=== PATIENT | female | born 1945 | race Caucasian/White ===

== ENCOUNTER → 2016-07-24 16:53 | Outpatient (CLI) | payer MEDICARE, BC ==
[2012-07-31 07:26] VITALS: BMI 19.8
== END | disposition home or self-care (01) ==
LOC: D.MAMMO 07-13 15:00
DX: Z12.31 Encounter for screening mammogram for malignant neoplasm of breast (principal)

== ENCOUNTER → 2017-09-25 18:30 | Outpatient (CLI) | payer MEDICARE, BC ==
[2012-07-31 07:26] VITALS: BMI 19.8
== END | disposition home or self-care (01) ==
LOC: D.MAMMO 11:45
DX: Z12.31 Encounter for screening mammogram for malignant neoplasm of breast (principal)

== ENCOUNTER → 2018-10-18 21:35 | Outpatient (CLI) | payer MEDICARE, BC ==
[2012-07-31 07:26] VITALS: BMI 19.8
== END | disposition home or self-care (01) ==
LOC: D.MAMMO 09-30 10:45
PROVIDERS: ATTEND Family Medicine
DX: Z12.31 Encounter for screening mammogram for malignant neoplasm of breast (principal)

== ENCOUNTER 2019-11-13 09:00 | Outpatient (CLI) | payer MEDICARE, BC ==
[2012-07-31 07:26] VITALS: BMI 19.8
== END 2019-11-13 10:00 | disposition home or self-care (01) ==
LOC: D.MAMMO 09:00
PROVIDERS: ATTEND Family Medicine
DX: Z12.31 Encounter for screening mammogram for malignant neoplasm of breast (principal)

== ENCOUNTER 2019-11-26 10:30 | Outpatient (CLI) | payer MEDICARE, BC ==
[2012-07-31 07:26] VITALS: BMI 19.8
== END 2019-11-26 11:30 | disposition home or self-care (01) ==
LOC: D.MAMMO 10:30
PROVIDERS: ATTEND Family Medicine
DX: R92.8 Other abnormal and inconclusive findings on diagnostic imaging of breast (principal)

== ENCOUNTER 2020-11-02 16:58 | Emergency (ER) | payer MEDICARE, BC ==
[~2020-11-02] VITALS: Ht 165.1 cm; Wt 68.2 kg
[2020-11-02 17:08] VITALS: Ht 165.1 cm; Wt 68.2 kg
[2020-11-02 17:42] LABS: BASOPHILS 0.9 % (0-2); EOSINOPHILS 4.9 % (0-7); HEMATOCRIT 29.1 % (36.0-48.0); HEMOGLOBIN 9.3 g/dL (12-16); LYMPHOCYTES 12.8 % (15-50); MCH 23.4 pg (26.0-34.0); MCV 73.4 fL (80.0-100.0); MEAN PLATELET VOLUME 7.5 fL (7.4-10.4); MONOCYTES 9.8 % (2-11); NEUTROPHILS 71.6 % (40-80); PLATELET COUNT 347 10x3/uL (130-400); RBC 3.97 10x6/uL (4.00-5.40); RDW 17.4 % (11.5-14.5); WBC 6.3 10x3/uL (4.8-10.8)
[2020-11-02 17:49] LABS: CALC OSMOLALITY 278 mosm/kg (275-300); CALCIUM 8.6 mg/dL (8.5-10.1); CARBON DIOXIDE 24.4 mmol/L (21.0-32.0); CHLORIDE - SERUM 103 mmol/L (98-107); GLUCOSE 121 mg/dL (74-106); SODIUM 138 mmol/L (136-145); UREA NITROGEN 17 mg/dL (7-18); eGFR NON AFRICAN AMERICAN 57 mL/min (90-120)
[2020-11-02 17:57] LABS: ALBUMIN 3.7 g/dL (3.4-5.0); ALKALINE PHOSPHATASE 90 U/L (30-120); ALT (SGPT) 26 U/L (10-68); BILIRUBIN - TOTAL 0.25 mg/dL (0.2-1.3); PROTEIN - SERUM 7.2 g/dL (6.4-8.2)
[2020-11-02 18:15] LABS: TROPONIN-I < 0.017 ng/mL (0.000-0.060)
[2020-11-02 18:38] LABS: APTT 27.5 SECONDS (22.8-39.4); INR 1.09 (0.85-1.17); PROTIME 13.1 SECONDS (11.6-15.0)
[2020-11-02 19:32] LABS: INFLUENZA TYPE A NEGATIVE (NEGATIVE); INFLUENZA TYPE B NEGATIVE (NEGATIVE)
[2020-11-02] MEDS ORDERED: PREDNISONE20 MG PO (19:32)
[2020-11-02] MEDS ORDERED: OMNICEF300 MG PO (19:32)
[2020-11-02 19:57] VITALS: BP 119/65
== END 2020-11-02 19:54 | disposition home or self-care (01) ==
LOC: D.ER 16:58
PROVIDERS: Family Medicine
DX: J44.1 Chronic obstructive pulmonary disease with (acute) exacerbation (principal); D64.9 Anemia, unspecified; R73.9 Hyperglycemia, unspecified; Z72.0 Tobacco use

== ENCOUNTER 2020-12-08 14:00 | Outpatient (CLI) | payer MEDICARE, BC ==
[2020-11-02 17:08] VITALS: BMI 25.0
[~2020-12-08 14:00] MED LIST: OMNICEF300 MG PO; PREDNISONE20 MG PO
== END 2020-12-08 23:59 | disposition home or self-care (01) ==
LOC: D.MAMMO 14:00
PROVIDERS: ATTEND Family Medicine
DX: R92.8 Other abnormal and inconclusive findings on diagnostic imaging of breast (principal)